=== PATIENT | female | born 1970 | race African-American/Black ===

== ENCOUNTER 2017-04-13 17:17 | Emergency (ER) | payer OTHER ==
[2017-04-13] MEDS ORDERED: MAG HYDROX/AL HYDROX/SIMETH 30 ML UDC PO STA (18:03)
[2017-04-13] MEDS ORDERED: LIDOCAINE VISCOUS 2% 15 ML UDC MM STA (18:03)
--- NOTE | 2017-04-13 18:06 | ED Physician Documentation ---
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 It is a sharp pain radiating from the left anterior neck down the left anterior chest. Sometimes happens after eating. She was short of breath with it today. It sounds like she has had a chest x-ray and some other workup without relevant findings. She has no personal or family history of DVT or PE, no leg swelling, no cough, no estrogen use, no hemoptysis , no fever.) Review of Systems Ten Systems: 10 systems reviewed and negative Constitutional: denies: Fever, Chills Nose: reports: Reviewed and negative Cardiac: reports: Chest pain / pressure, Reviewed and negative. denies: Palpitations, Pedal edema, Calf pain Respiratory: reports: Dyspnea. denies: Cough GI: denies: Abdominal Pain, Nausea, Vomiting PD PAST MEDICAL HISTORY - Present Medications Home Medications: Ambulatory Orders Medication Instructions Recorded Confirmed Naproxen [Naprosyn] 250 mg PO BID 04/13/17 04/13/17 - Allergies Allergies/Adverse Reactions: Allergies Allergy/AdvReac Type Severity Reaction Status Date / Time No Known Drug Allergies Allergy Verified 04/13/17 18:19 PD ED PE NORMAL - Vitals Vital signs reviewed: Yes - General General: Alert and oriented X 3, No acute distress - HEENT HEENT: PERRL, EOMI - Neck Neck: Supple, no meningeal sign, No bony TTP - Cardiac Cardiac: RRR, No murmur, Other (Tender to the sternum) - Respiratory Respiratory: No respiratory distress, Clear bilaterally - Abdomen Abdomen: Soft, Non tender - Derm Derm: Normal color, Warm and dry - Extremities Extremities: No edema, No calf tenderness / cord - Neuro Neuro: Alert and oriented X 3, Normal speech - Psych Psych: Normal mood, Normal affect Results - Vitals Vitals: Vital Signs - 24 hr 04/13/17 04/13/17 17:23 18:26 Temperature 36.8 C Heart Rate 84 76 Respiratory 18 24 Rate Blood Pressure 142/90 H 110/69 O2 Saturation 100 98 Oxygen O2 Source Room air - EKG (time done) 1731 Rate: Rate (enter#) (85) Rhythm: NSR [place]: Normal Intervals: Normal IA QRS: Normal Ischemia: Normal ST segments Computer interpretation: Agree with computer - Labs Labs: Laboratory Tests 04/13/17 04/13/17 04/13/17 17:29 17:29 17:29 WBC 5.8 RBC 4.47 Hgb 13.6 Hct 40.1 MCV 89.6 MCH 30.4 MCHC 34.0 RDW 13.0 Plt Count 294 MPV 8.3 Manual Slide Review Indicated Sodium 138 Potassium 3.3 L Chloride 102 Carbon Dioxide 27 Anion Gap 9.0 BUN 8 Creatinine 0.6 Estimated GFR (MDRD) 131 Glucose 91 Calcium 9.5 Total Bilirubin 0.7 AST 22 ALT 19 Alkaline Phosphatase 60 Troponin I < 0.04 Total Protein 8.1 Albumin 4.6 Globulin 3.5 Albumin/Globulin Ratio 1.3 Lipase 36 - Rads (name of study) 2v chest Radiology: EMP read contemporaneously (Normal) PD MEDICAL DECISION MAKING - ED course ED course: 46-year-old woman with almost chronic intermittent chest pain now that is quite atypical and pleuritic. Workup here negative. Follow-up advised. Departure - Departure Disposition: 01 Home, Self Care Clinical Impression: Atypical chest pain Condition: Good Record reviewed to determine appropriate education?: Yes Instructions: ED Chest Pain NonCardiac Comments: Continuing anti-inflammatories like naproxen, follow-up with your flight surgeon , discuss potentially an upper endoscopy and/or stress test. Return if worse.
[2017-04-13] MEDS ORDERED: LIDOCAINE VISCOUS 2% 15 ML UDC MM ONE (18:14)
[2017-04-13] MEDS ORDERED: MAG HYDROX/AL HYDROX/SIMETH 30 ML UDC ONE (18:15)
[2017-04-13 18:18] LABS: BASOPHILS % (AUTO) 0.3 %; EOSINOPHILS % (AUTO) 0.7 %; HCT - HEMATOCRIT 40.1 % (37.0-47.0); HGB - HEMOGLOBIN 13.6 g/dL (12.0-16.0); LYMPHOCYTES # (AUTO) 3.3 10^3/uL (1.5-3.5); LYMPHOCYTES % (AUTO) 55.8 %; MEAN CORPUSCULAR HEMOGLOBIN 30.4 pg (27.0-31.0); MEAN CORPUSCULAR VOLUME 89.6 fL (81.0-99.0); MEAN PLATELET VOLUME 8.3 fL (7.9-10.8); MONOCYTES # (AUTO) 0.4 10^3/uL (0.0-1.0); MONOCYTES % (AUTO) 7.6 %; NEUTROPHILS # (AUTO) 2.1 10^3/uL (1.5-6.6); NEUTROPHILS % (AUTO) 35.6 %; NUCLEATED RED BLOOD CELLS AUTO 0.1 /100WBC; RED BLOOD COUNT 4.47 10^6/uL (4.20-5.40); UNCORRECTED WHITE BLOOD COUNT 5.8 x10^3/uL; WHITE BLOOD COUNT 5.8 x10^3/uL (4.8-10.8)
[2017-04-13 18:33] LABS: ALBUMIN/GLOBULIN RATIO 1.3 (1.0-2.2); BILIRUBIN,TOTAL 0.7 mg/dL (0.2-1.0); CALCIUM 9.5 mg/dL (8.5-10.3); CREATININE 0.6 mg/dL (0.4-1.0); POTASSIUM 3.3 mmol/L (3.5-5.0); TOTAL PROTEIN 8.1 g/dL (6.7-8.2)
--- NOTE | 2017-04-13 19:14 | XRAY Preliminary Report ---
Exam: XR Chest 2 View PA/LAT IMPRESSION: Normal 2-view chest radiography. [facility] SITE ID: [id number]
--- NOTE | 2017-04-13 19:17 | XRAY Report ---
EXAM: CHEST RADIOGRAPHY EXAM DATE: 04/13/2017 07:00 PM. CLINICAL HISTORY: Chest pain. COMPARISON: None. TECHNIQUE: 2 views. FINDINGS: Lungs/Pleura: No focal opacities evident. No pleural effusion. No pneumothorax. Normal volumes. Mediastinum: Heart and mediastinal contours are unremarkable. Other: None. IMPRESSION: Normal 2-view chest radiography. [facility] Referring Provider Line: [phone] SITE ID: [id number]
[2017-04-13 19:40] VITALS: BP 116/71
[2017-04-13 20:50] LABS: PLATELET ESTIMATE, MANUAL NORMAL (130-450,000) (NORMAL); PLATELET MORPHOLOGY RARE GIANT PLATELETS (NORMAL); WBC MORPHOLOGY (MULTIPLE) 1+ REACTIVE LYMPHS (NORMAL)
== END 2017-04-13 19:56 | disposition home or self-care (01) ==
LOC: ED 17:17
DX: R07.9 Chest pain, unspecified (principal)
CPT/HCPCS: 36415; 71020; 80053; 83690; 84484; 85025; 93005; 99284; A9270

== ENCOUNTER 2017-04-29 14:12 | Outpatient (CLI) | payer OTHER ==
--- NOTE | 2017-04-29 17:50 | CARDIAC PROCEDURE NOTE ---
DATE OF SERVICE: 04/29/2017 00:00:00 PRIMARY CARE PHYSICIAN: Be Greenwood DO at [facility] PROCEDURE: Cardiac treadmill stress test. PROCEDURE SYMPTOMS: Chest pain and dyspnea on exertion. CARDIAC RISK FACTORS: Include family history. CLINICAL HISTORY: A 46-year-old female without known coronary artery disease. INITIAL RESTING VITAL SIGNS: Blood pressure 108/80, heart rate 101, height 63 inches, weight 191 poun ds, BMI 33.91. PROCEDURE AND FINDINGS: The patient's identity and birthdate verified, consent signed. The patient pe rformed treadmill exercise using a Be protocol completing 10 minutes, 9 seconds and completing an estimating work load of 12.9 metabolic equivalents. Maximal blood pressure was 154/82 with a heart r ate of 190 beats per minute or 109% of maximum predicted heart rate for age. The blood pressure respo nse to exercise was within normal limits. The patient stopped because of fatigue and greater than 100 % predicted heart rate was achieved. The resting ECG demonstrated normal sinus rhythm with no abnorma lity. Maximum ST segment depression was less than 0.5 mm and upsloping. FINAL IMPRESSIONS: 1. Negative stress electrocardiogram for ischemia by electrocardiographic criteria. 2. Negative stress test clinically for angina. 3. No ectopy. 4. [place] [employer] functional class I. JOB #: [id number] EXT JOB #:[id number]
[2017-04-29 18:44] VITALS: BP 108/80
--- NOTE | 2017-04-30 13:53 | XRAY Report ---
There was no imaging performed for this exam. Procedure notes and results available in the EMR. NATY
== END 2017-04-29 14:13 | disposition home or self-care (01) ==
LOC: DI 14:12
PROVIDERS: ATTEND Physician Assistant
DX: R06.00 Dyspnea, unspecified (principal)
CPT/HCPCS: 93017

== ENCOUNTER 2020-09-05 13:18 | Outpatient (CLI) | payer OTHER | END 2020-09-05 13:19 | disposition home or self-care (01) | LOC: COV 13:18 | PROVIDERS: ATTEND Family Medicine | DX: Z20.828 Contact with and (suspected) exposure to other viral communicable diseases (principal) ==

== ENCOUNTER 2021-09-16 08:05 | Outpatient (CLI) | payer OTHER ==
--- NOTE | 2021-09-16 17:21 | XRAY Report ---
PROCEDURE: Shoulder 3 View RT INDICATIONS: R SHOULDER PX TECHNIQUE: 4 views of the shoulder were acquired. COMPARISON: None. FINDINGS: Bones: No fractures or dislocations. No suspicious bony lesions. Visualized ribs appear intact. Soft tissues: No suspicious soft tissue calcifications. IMPRESSION: No fracture. No osseous lesion. If there are persistent symptoms or continued clinical concern for pa thology, then repeat plain film radiographs (7-10 days) or advanced imaging (CT, MR, bone scan) shoul d be considered for further evaluation. Reviewed by: Mirela Zuniga MD, PhD on 09/16/2021 5:20 PM PST Approved by: Mirela Zuniga MD, PhD on 09/16/2021 5:20 PM [facility] Station ID: [id number]
== END 2021-09-16 23:59 | disposition home or self-care (01) ==
LOC: DI.N 08:05
PROVIDERS: ATTEND Orthopaedic Surgery
DX: M25.511 Pain in right shoulder (principal)